=== PATIENT | female | born 1960 | race Caucasian/White ===

== ENCOUNTER 2020-05-31 13:28 | Observation (INO) ==
[2020-05-31] MEDS ORDERED: SODIUM CHLORIDE 0.9% 1,000 ML IV STA (14:05)
[2020-05-31 14:16] LABS: Basophils % 0.2 % (0.0-0.8); Eosinophils # 0.1 10*3/uL (0.0-0.87); Eosinophils % 0.6 % (0.00-10.9); Hematocrit 41.3 VOL% (35.7-47.0); Hemoglobin 14.6 GM/DL (12.0-16.0); Immature Granulocytes % 0.2 %; Immature Granulocytes Absolute 0.02 #; Lymphocytes # 2.9 10*3/uL (1.4-4.0); Lymphocytes % 33.9 % (21.3-54.2); Mean Corpuscular HGB Conc 35.4 GM/DL (32-36); Mean Corpuscular Volume 87.9 FL (87-102); Mean Platelet Volume 11.6 FL (9.6-12.0); Neutrophils % 57.1 % (38.7-73.9); Platelet Count 178 T/CUMM (130-400); Red Cell Distribution Width 13.2 % (9.3-17.3); White Blood Count 8.6 T/CUMM (4-12)
[2020-05-31 14:28] LABS: Alanine Aminotransferase 45 U/L (13-56); Albumin 4.1 G/DL (3.4-5.0); Alkaline Phosphatase 60 U/L (45-117); Aspartate Amino Transferase 23 U/L (0-37); Bilirubin,Total < 0.39 MG/DL (0.2-1.0); Blood Urea Nitrogen 17 MG/DL (7-18); Calcium 8.8 MG/DL (8.5-10.1); Estimated Glom Filtration Rate 79 ML/MIN; Glucose 108 MG/DL (74-106); Osmolality,Calculated 281.4 MOS/KG (273-304); Total Protein 7.6 G/DL (6.4-8.3)
[2020-05-31 15:20] LABS: Bacteria,Urine Occasional /HPF (Few); Bilirubin,Urine Negative (Negative); Blood, Urine Small mg/dL (Negative); Glucose,Urine (UA) Negative (Negative); Ketones,Urine Negative (Negative); Mucus,Urine Occasional /LPF (Occasional); Nitrite,Urine Negative (Negative); Protein,Urine Negative; RBC,Urine 6 /HPF (0-4); Squamous Epithelial Cell,Urine Occasional /HPF (0-10); Urine Appearance CLEAR (Clear); Urine Color Yellow (Yellow); Urine Specific Gravity 1.013 (1.001-1.035); WBC,Urine <1 /HPF (0-6)
[2020-05-31] MEDS ORDERED: GLUCAGON 1 MG VIAL IM PRN ×2 (15:45)
[2020-05-31] MEDS ORDERED: DEXTROSE 50% 25 GM/50 ML VIAL IV PRN ×2 (15:45)
[2020-05-31 15:47] LABS: Barbiturates Screen,Urine Negative (Negative); Benzodiazepines Screen,Urine Negative (Negative); Cannabinoid Screen,Urine Negative (Negative); Opiate Screen,Urine Negative (Negative); Phencyclidine Screen,Urine Negative (Negative)
[2020-05-31] MEDS ORDERED: ENOXAPARIN 40 MG/0.4 ML SYRINGE SUBCUT SCH (18:00)
[2020-05-31] MEDS: SODIUM CHLORIDE 0.9% 1,000 ML IV SCH (18:07)
[2020-05-31] MEDS: INSULIN LISPRO 100 UNIT/ML SUBCUT SCH ×2 (18:07→20:59)
[2020-05-31] MEDS ORDERED: SIMVASTATIN 20 MG TABLET PO SCH (21:00)
[2020-05-31] MEDS ORDERED: NICOTINE 21 MG/24 HR PATCH TRANSDERM SCH (21:00)
[2020-06-01] MEDS: SODIUM CHLORIDE 0.9% 1,000 ML IV SCH ×2 (02:13→10:00)
[2020-06-01 07:00] LABS: Basophils % 0.3 % (0.0-0.8); Eosinophils # 0.1 10*3/uL (0.0-0.87); Eosinophils % 0.9 % (0.00-10.9); Hematocrit 38.8 VOL% (35.7-47.0); Hemoglobin 13.4 GM/DL (12.0-16.0); Immature Granulocytes % 0.2 %; Immature Granulocytes Absolute 0.01 #; Lymphocytes # 2.1 10*3/uL (1.4-4.0); Lymphocytes % 32.5 % (21.3-54.2); Mean Corpuscular HGB Conc 34.5 GM/DL (32-36); Mean Corpuscular Volume 88.8 FL (87-102); Mean Platelet Volume 11.4 FL (9.6-12.0); Monocytes % 6.2 % (1.7-12.7); Neutrophils % 59.9 % (38.7-73.9); Platelet Count 145 T/CUMM (130-400); Red Blood Count 4.37 MC/CUMM (3.8-5.5); Red Cell Distribution Width 13.2 % (9.3-17.3); White Blood Count 6.6 T/CUMM (4-12)
[2020-06-01 07:26] LABS: Hypochromasia 1+; Microcytosis 1+; Platelet Estimate Adequate
[2020-06-01 07:31] LABS: Calcium 8.4 MG/DL (8.5-10.1); Osmolality,Calculated 281.4 MOS/KG (273-304); Risk Ratio 5.17; Thyroid Stimulating Hormone 2.3 uIU/ml (0.358-3.74); VLDL CHOLESTEROL 111.6 MG/DL
[2020-06-01] MEDS ORDERED: ACETAMINOPHEN 325 MG TABLET PO PRN (08:18)
[2020-06-01] MEDS: INSULIN LISPRO 100 UNIT/ML SUBCUT SCH ×2 (08:46→13:12)
[2020-06-01] MEDS ORDERED: PANTOPRAZOLE 40 MG TABLET PO SCH (09:00)
[2020-06-01] MEDS ORDERED: MECLIZINE 25 MG TABLET PO SCH (09:00)
[2020-06-01] MEDS ORDERED: ASPIRIN EC 81 MG TABLET PO SCH (09:00)
[2020-06-01] MEDS ORDERED: PREGABALIN 100 MG CAPSULE PO SCH (09:00)
[2020-06-01] MEDS ORDERED: FLUoxetine 20 MG CAPSULE PO SCH (09:00)
[2020-06-01] MEDS ORDERED: TRIAMTERENE/HCTZ 75-50 MG TABLET PO SCH (09:00)
[2020-06-01 12:16] VITALS: BP 116/79
[2020-06-01] MEDS ORDERED: NICOTINE 21 MG/24 HR PATCH TRANSDERM SCH (21:00)
== END 2020-06-01 14:44 | disposition home or self-care (01) ==
LOC: N.EDINP 13:28 → N.ED 13:28 → N.TELEN 17:18
PROVIDERS: ADMIT Internal Medicine; ATTEND Internal Medicine